=== PATIENT | female | born 1990 | race Caucasian/White ===

== ENCOUNTER 2016-12-18 10:59 | Emergency (ER) | payer OTHER ==
[2016-12-18 11:09] VITALS: BP 118/84; PULSE 87; TEMP 98.4; BMI 26.6
--- NOTE | 2016-12-18 11:45 | PDOC ---
History of Present Illness - General Chief Complaint: Urinary Problem Stated Complaint: UTI X 1 WEEK Time Seen by Provider: 12/18/16 11:34 - History of Present Illness Initial Comments: 12/18/16 11:41 26-year-old female with a negative past medical history She is on no medications, NKDA LMP 11/26/16, normal and on time Patient is complaining of 5 days of dysuria urgency and frequency She's been using the otca-die-lcioubm Uristat for the past 3-4 days, which helps temporarily, but then the symptoms return She states the symptoms became worse this morning, prompting her to come to the emergency department She denies any fevers or chills She denies any flank pain She denies any pelvic pain She denies any abnormal vaginal discharge spotting or bleeding She denies a history of frequent urinary tract infections, and states that this is her first one She denies any other complaints at this time, and the remainder of the review of systems is negative Past History - Past Medical History Allergies/Adverse Reactions: Allergies Allergy/AdvReac Type Severity Reaction Status Date / Time No Known Allergies Allergy Verified 12/18/16 11:01 Home Medications: Ambulatory Orders Cephalexin Monohydrate [Keflex -] 500 mg PO Q8H #21 capsule 12/18/16 - Immunization History Immunization Up to Date: Yes - Psycho/Social/Smoking Cessation Hx Anxiety: No Suicidal Ideation: No Smoking Status: No Smoking History: Never smoked Have you smoked in the past 12 months: No Number of Cigarettes Smoked Daily: 0 Hx Alcohol Use: No Drug/Substance Use Hx: No Substance Use Type: None *Physical Exam - Vital Signs Last Vital Signs Temp Pulse Resp BP Pulse Ox 98.4 F 87 15 118/84 97 12/18/16 11:01 12/18/16 11:01 12/18/16 11:01 12/18/16 11:01 12/18/16 11:01 - Physical Exam Comments: 12/18/16 11:43 Physical exam Last Vital Signs Temp Pulse Resp BP Pulse Ox 98.4 F 87 15 118/84 97 12/18/16 11:01 12/18/16 11:01 12/18/16 11:01 12/18/16 11:01 12/18/16 11:01 GENERAL: The patient is awake, alert, and fully oriented, and in no apparent distress. HEAD: Normal with no signs of trauma. EYES: sclera anicteric, conjunctiva are normal. ENT: Moist mucous membranes. NECK: Normal range of motion, supple LUNGS: Breath sounds equal, clear to auscultation bilaterally. No wheezes, and no crackles. HEART: Regular rate and rhythm, normal S1 and S2 without murmur, rub or gallop. ABDOMEN: Soft, nontender, normoactive bowel sounds. No guarding, no rebound. No masses appreciated. There is no CVA tenderness There is minimal suprapubic tenderness to palpation, otherwise the abdomen is completely soft and nontender EXTREMITIES: Normal range of motion, no edema. No clubbing or cyanosis. No cords, erythema, or tenderness. NEUROLOGICAL: Cranial nerves II through XII grossly intact. Normal speech, normal gait. PSYCH: Normal mood, normal affect. SKIN: Warm, Dry, normal turgor, no rashes or lesions noted. Medical Decision Making - Medical Decision Making 12/18/16 11:44 Most likely simple cystitis, and the patient does not have a history of recurrent UTIs, and no clinical evidence of pyelonephritis 12/18/16 12:35 UA with positive leukocyte esterase and positive nitrate, micro-pending Consistent with UTI Laboratory Results - last 24 hr 12/18/16 11:05 Urine Color Yellow Urine Appearance Cloudy Urine pH 7.0 Ur Specific [place] 1.015 Urine Protein 1+ H Urine Glucose (UA) Trace Urine Ketones Negative Urine Blood 1+ H Urine Nitrite Positive Urine Bilirubin Negative Urine Urobilinogen 1.0 e.u/dl Ur Leukocyte Esterase Trace Impression-UTI *DC/Admit/Observation/Transfer Diagnosis at time of Disposition: Urinary tract infection - Discharge Dispostion Disposition: HOME Condition at time of disposition: Good - Referrals Referrals: Aurelio Carter MD [Primary Care Provider] - Call tomorrow - Patient Instructions Printed Discharge Instructions: Urinary Tract Infection, DI for Urinary Tract Infection (UTI) Additional Instructions: Drink plenty of fluids Take your medications as prescribed Take the antibiotic as prescribed until it is finished Return immediately if you develop fever, chills, vomiting, severe pain, or flank pain You cannot take any more [id number] Urostat as you have already taken it for 3-4 days Followup with your primary care physician in 24-48 hours Return immediately if you worsen in any way Take your medications as directed
[2016-12-18 12:33] LABS: URINE APPEARANCE Cloudy; URINE BILIRUBIN Negative (NEGATIVE); URINE BLOOD 1+ (NEGATIVE); URINE GLUCOSE (UA) Trace (NEGATIVE); URINE KETONE Negative (NEGATIVE); URINE LEUK ESTERASE Trace (NEGATIVE); URINE NITRITE Positive (NEGATIVE); URINE PROTEIN 1+ (NEGATIVE); URINE UROBILINOGEN 1.0 E.U/dl (0.2-1.0)
[2016-12-18 12:34] LABS: URINE BACTERIA MANY /hpf (NEGATIVE); URINE COLOR YELLOW; URINE WBC 0-3 (3-5)
[2016-12-18 12:35] LABS: URINE MUCUS FEW
== END 2016-12-18 12:48 | disposition home or self-care (01) ==
LOC: FER 10:59
DX: N39.0 Urinary tract infection, site not specified (principal)
CPT/HCPCS: 81003; 81015; 87086; 99282-25

== ENCOUNTER 2017-03-17 19:10 | Emergency (ER) | payer OTHER ==
[2017-03-17 19:19] VITALS: BP 129/78; PULSE 115; TEMP 99; BMI 28.1
--- NOTE | 2017-03-17 19:32 | PDOC ---
History of Present Illness - General History Source: Patient Exam Limitations: No Limitations - History of Present Illness Initial Comments: 03/17/17 19:55 The patient is a 26 year old female, with no significant past medical history, who presents to the emergency department complaining of a sore throat for approximately 4 days. The patient reports associated fever, chills, nasal congestion, shortness of breath, and chest discomfort. Patient reports taking advil and robitussin for the fever with no relief. Patient reports a cough productive with green sputum. She denies any headache or dizziness. She denies any diaphoresis, palpitations, or lower extremity edema. Patient reports she has not been able to tolerate solids or fluids p.o. due to throat pain. She denies any abdominal pain, nausea, or vomiting. She denies any recent travel or sick contacts. PAST MEDICAL HISTORY: no significant history PAST SURGICAL HISTORY: no significant history FAMILY HISTORY: no pertinent history SOCIAL HISTORY: Pt lives with family and is employed. MEDICATIONS: reviewed ALLERGIES: As per nursing notes General: Yes: +fever, +chills, +body aches. No weakness, no weight loss HEENT: Yes: +sore throat. No change in vision. No ear pain CardioVascular: Yes: +shortness of breath, +chest discomfort. Respiratory: Yes: +cough. No or wheezing. Gastrointestinal: no nausea, vomiting, diarrhea or constipation, No rectal bleeding Genitourinary: No dysuria, hematuria, or frequency Musculoskeletal: No joint or muscle pain or swelling Neurologic: No headache, vertigo, dizziness or loss of consciousness Psychiatric: No depression Skin: No rashes or easy bruising Endocrine: no increased thirst or abnormal weight change Allergic: no skin or latex allergy All other systems reviewed and normal General: Mild distress. Well-nourished well-developed individual. HEENT: Throat: Posterior oropharynx is enlarged with erythema and exudate Neck: Bilateral submandibular lymphadenopathy. Supple, no meningeal signs. Eyes: Pupils equal reactive and round, extraocular motion intact Chest: Nontender to palpation Cardiac: S1-S2 normal, regular rate and rhythm, no murmurs rubs or gallops Respiratory: Lungs clear to auscultation bilateral Extremities: Warm, dry, no cyanosis, clubbing, or edema Skin: No rashes Neuro: Alert and oriented x3, nonfocal exam, grossly intact, normal gait Psych: Normal mood and affect <Martinez,Giomilsy - Last Filed: 03/17/17 19:54> - General History Source: Patient Exam Limitations: No Limitations - History of Present Illness Initial Comments: 03/17/17 20:01 A portion of this note was documented by scribe services under my direction. I have reviewed the details of the note, within reason, and agree with the documentation. The case summary and management plan written by me. Assessment and plan: This is a 26-year-old female who comes in complaining of cough congestion and upper respiratory tract symptoms in addition to sore throat fever and swollen lymph glands. Patient on exam has an exudative pharyngitis with lymphadenopathy and fever. Patient meets criteria for strep pharyngitis and will be started on azithromycin which will also cover her for any respiratory infection as well since she's is complaining of some pleuritic type chest pain and coughing up green phlegm. Patient given first dose in the emergency room and discharged home with a prescription for the rest of the course of azithromycin. Patient told to get a thermometer so she could monitor her temperature and follow up with her primary care doctor. <Danielle Can I - Last Filed: 03/17/17 20:02> - General Chief Complaint: Respiratory Stated Complaint: SORE THROAT, COUGH Time Seen by Provider: 03/17/17 19:30 Past History <Manpreet Martinez - Last Filed: 03/17/17 19:54> - Past Medical History Other medical history: DENIES - Immunization History Immunization Up to Date: Yes - Psycho/Social/Smoking Cessation Hx Anxiety: No Suicidal Ideation: No Smoking Status: No Smoking History: Never smoked Have you smoked in the past 12 months: No Number of Cigarettes Smoked Daily: 0 Information on smoking cessation initiated: No Hx Alcohol Use: No Drug/Substance Use Hx: No Substance Use Type: None <Danielle Can I - Last Filed: 03/17/17 20:02> - Past Medical History Allergies/Adverse Reactions: Allergies Allergy/AdvReac Type Severity Reaction Status Date / Time No Known Allergies Allergy Verified 03/17/17 19:14 Home Medications: Ambulatory Orders Azithromycin 250 mg PO DAILY #4 tablet 03/17/17 Guaifenesin [Robitussin -] 100 mg PO ASDIR PRN 03/17/17 Ibuprofen [Advil -] 400 mg PO ASDIR PRN 03/17/17 *Physical Exam - Vital Signs Last Vital Signs Temp Pulse Resp BP Pulse Ox 99 F 115 H 20 129/78 99 03/17/17 19:10 03/17/17 19:10 03/17/17 19:10 03/17/17 19:10 03/17/17 19:10 <Manpreet Martinez - Last Filed: 03/17/17 19:54> - Vital Signs Last Vital Signs Temp Pulse Resp BP Pulse Ox 99 F 115 H 20 129/78 99 03/17/17 19:10 03/17/17 19:10 03/17/17 19:10 03/17/17 19:10 03/17/17 19:10 <Danielle Can I - Last Filed: 03/17/17 20:02> *DC/Admit/Observation/Transfer - Attestations Scribe Attestion: 03/17/17 19:55 Documentation prepared by Manpreet Martinez, acting as medical records auditor for Danielle Can MD. <Manpreet Martinez - Last Filed: 03/17/17 19:54> - Discharge Dispostion Admit: No <Danielle Can I - Last Filed: 03/17/17 20:02> Diagnosis at time of Disposition: Pharyngitis Qualifiers: Pharyngitis/tonsillitis etiology: unspecified etiology Qualified Code(s): J02.9 - Acute pharyngitis, unspecified - Discharge Dispostion Disposition: HOME Condition at time of disposition: Stable - Prescriptions Prescriptions: Azithromycin 250 mg PO DAILY #4 tablet - Patient Instructions Printed Discharge Instructions: How to Take an Oral Temperature, DI for Strep Throat Additional Instructions: Take azithromycin 1 tablet in the evening before bed once a day for the next 4 days. You were given the first dose this evening so you need to take the next dose tomorrow evening. Alternate Tylenol with ibuprofen as often as every 3 hours if needed as discussed by the physician. Purchase a thermometer so you can monitor your temperature. Make sure you stay well hydrated. Return to the emergency department immediately with ANY new, persistent or worsening symptoms. Continue any medications as previously prescribed by your physician. You should follow up with your primary doctor as soon as possible regarding today's emergency department visit. . Please make sure your doctor reviews the results of your emergency evaluation. Thank you for coming to the Emergency Department today for your care. It was a pleasure to see you today. Please note that your evaluation is INCOMPLETE until you follow-up with your doctor.
[2017-03-17] MEDS ORDERED: DEXAMETHASONE SOD PHOSPHATE 10 MG/1 ML VIAL IVPUSH ONE (19:50)
[2017-03-17] MEDS ORDERED: AZITHROMYCIN 250 MG TABLET (FP) PO ONE (19:50)
[2017-03-17] MEDS ORDERED: DEXAMETHASONE SOD PHOSPHATE 10 MG/1 ML VIAL ONE (19:52)
[2017-03-17] MEDS ORDERED: AZITHROMYCIN 250 MG TABLET (FP) ONE (19:52)
== END 2017-03-17 20:00 | disposition home or self-care (01) ==
LOC: FER 19:10
PROC: 3E033GC Introduction of Other Therapeutic Substance into Peripheral Vein, Percutaneous Approach (ICD-10-PCS; principal; 2017-03-17)
DX: J02.9 Acute pharyngitis, unspecified (principal)
CPT/HCPCS: 96374; 99283-25

== ENCOUNTER 2017-11-28 12:54 | Emergency (ER) | payer OTHER ==
[2017-11-28 13:01] VITALS: BP 126/76; PULSE 89; TEMP 98.4; BMI 28.3
--- NOTE | 2017-11-28 13:22 | PDOC ---
History of Present Illness - General Chief Complaint: Respiratory Stated Complaint: COUGH & COLD SX, DIARRHEA Time Seen by Provider: 11/28/17 13:22 - History of Present Illness Initial Comments: 11/28/17 14:52 Chief complaint: URI symptoms and diarrhea History of present illness: Mild respiratory illness for about 1 week, nausea and diarrhea today, watery stool without blood, at least 10 episodes. Review of systems: Admits to myalgias, body aches, fever/chills, intermittent mild crampy abdominal pain associated with the diarrhea. No vomiting. No chest pain, shortness of breath, urinary tract symptoms, vaginal bleeding or discharge , and she states there is no possibility that she is . 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 Soft without masses tenderness organomegaly. No CVAT. Extremities no CCE Skin clear, no rashes, adequate turgor, but mucous membranes slightly dry Neurological intact One episode of diarrhea upon arrival, none since. Impression: Viral syndrome, URI and gastroenteritis, mild dehydration Plan: Intravenous fluids and symptomatic treatment. Observation. Labs to evaluate electrolyte status. Past History - Past Medical History Allergies/Adverse Reactions: Allergies Allergy/AdvReac Type Severity Reaction Status Date / Time No Known Allergies Allergy Verified 11/28/17 12:54 Home Medications: Ambulatory Orders Ondansetron [Zofran Odt -] 4 mg SL TID PRN #10 od.tablet 11/28/17 COPD: No Other medical history: PT DENIES - Immunization History Immunization Up to Date: Yes - Suicide/Smoking/Psychosocial Hx Smoking Status: No Smoking History: Never smoked Have you smoked in the past 12 months: No Number of Cigarettes Smoked Daily: 0 Hx Alcohol Use: (occasional) Drug/Substance Use Hx: No Substance Use Type: None *Physical Exam - Vital Signs Last Vital Signs Temp Pulse Resp BP Pulse Ox 98.4 F 89 18 126/76 100 11/28/17 12:54 11/28/17 12:54 11/28/17 12:54 11/28/17 12:54 11/28/17 12:54 ED Treatment Course - LABORATORY CBC & Chemistry Diagram: 11/28/17 13:50 11/28/17 13:50 Medical Decision Making - Medical Decision Making 11/28/17 14:56 Laboratory evaluation was reviewed. CBC chemistries urinalysis and test show no significant abnormalities. Specifically, BUNs/creatinine, electrolytes are normal. Urine negative. Urinalysis clear Patient feels somewhat better after intravenous fluid administration, Toradol, and Zofran 11/28/17 14:58 No further nausea, diarrhea. 11/28/17 16:09 *DC/Admit/Observation/Transfer Diagnosis at time of Disposition: Viral syndrome - Discharge Dispostion Disposition: HOME Condition at time of disposition: Improved Admit: No - Prescriptions Prescriptions: Ondansetron [Zofran Odt -] 4 mg SL TID PRN #10 od.tablet PRN Reason: Nausea And/Or Vomiting - Referrals Referrals: Aurelio Carter MD [Primary Care Provider] - 2 Days - Patient Instructions Printed Discharge Instructions: DI for Viral Gastroenteritis -- Adult, DI for Viral Upper Respiratory Infection -- Adult - Post Discharge Activity Forms/Work/School Notes: Back to Work Activity Comments: 11/28/17 15:06 Rest, drink lots of fluids, take Tylenol or Advil for headache, body aches, or fever Prescription medication as directed for nausea or vomiting if these are preventing you from drinking enough liquids Continue Imodium if diarrhea persists and is severe Return to ER if symptoms worsen, otherwise follow-up with primary physician.
[2017-11-28] MEDS ORDERED: KETOROLAC TROMETHAMINE 30 MG/1 ML VIAL IVPUSH ONE (13:43)
[2017-11-28] MEDS ORDERED: ONDANSETRON 4 MG/2 ML VIAL IVPB ONE (13:43)
[2017-11-28] MEDS ORDERED: LOPERAMIDE HCL 2 MG CAPSULE PO ONE (13:43)
[2017-11-28] MEDS ORDERED: SODIUM CHLORIDE 1,000 ML IV STA ×2 (13:43→14:58)
[2017-11-28] MEDS ORDERED: ONDANSETRON 4 MG/2 ML VIAL ONE (13:54)
[2017-11-28] MEDS ORDERED: LOPERAMIDE HCL 2 MG CAPSULE ONE (13:55)
[2017-11-28 14:15] LABS: URINE APPEARANCE Clear; URINE BILIRUBIN Negative (NEGATIVE); URINE BLOOD 1+ (NEGATIVE); URINE COLOR YELLOW; URINE GLUCOSE (UA) Negative (NEGATIVE); URINE KETONE Negative (NEGATIVE); URINE LEUK ESTERASE Negative (NEGATIVE); URINE NITRITE Negative (NEGATIVE); URINE PROTEIN Negative (NEGATIVE); URINE UROBILINOGEN 0.2 (0.2-1.0)
[2017-11-28 14:19] LABS: ALBUMIN 3.9 g/dl (3.5-5.0); ALK PHOS 74 U/L (32-92); ANION GAP 1 (8-16); BLOOD UREA NITROGEN 8 mg/dl (7-18); CALCIUM 8.9 mg/dl (8.4-10.2); CHLORIDE 105 mmol/L (98-107); CO2 25 mmol/L (22-28); GLUCOSE,RANDOM 96 mg/dl (74-106); POTASSIUM 4.2 mmol/L (3.5-5.1); SGOT/AST 21 U/L (10-42); SGPT/ALT 20 U/L (10-40); SODIUM 131 mmol/L (136-145); TOT PROT 7.2 g/dl (6.4-8.3)
[2017-11-28 14:29] LABS: BILIRUBIN,TOTAL < 0.5 mg/dl (0.2-1.0); CREATININE < 0.8 mg/dl (0.6-1.3)
[2017-11-28 14:31] LABS: HCG,QUALITATIVE URINE NEGATIVE
[2017-11-28 14:36] LABS: BASO % 0.5 % (0-2.0); EOS % 3.3 % (0-4.5); HEMATOCRIT 39.1 % (32.4-45.2); HEMOGLOBIN 13.2 GM/dl (10.7-15.3); LYMPH % 13.1 % (8-40); MCH 29.7 pg (25.7-33.7); MCHC 33.9 g/dl (32.0-36.0); MEAN CELL VOLUME 87.6 fl (80-96); MEAN PLT VOLUME 8.1 fl (7.5-11.1); MONO % 6.5 % (3.8-10.2); NEUT % 76.6 % (42.8-82.8); PLATELET COUNT 252 K/MM3 (134-434); RBC 4.46 M/mm3 (3.60-5.2); WHITE BLOOD COUNT 9.4 K/mm3 (4.0-10.8)
[2017-11-28] MEDS ORDERED: KETOROLAC TROMETHAMINE 30 MG/1 ML VIAL ONE (14:37)
[2017-11-28 21:34] LABS: URINE BACTERIA FEW /hpf (NEGATIVE); URINE WBC 0-2 (0-5)
== END 2017-11-28 16:15 | disposition home or self-care (01) ==
LOC: FER 12:54
PROC: 3E0333Z Introduction of Anti-inflammatory into Peripheral Vein, Percutaneous Approach (ICD-10-PCS; principal; 2017-11-28)
PROC: 3E033GC Introduction of Other Therapeutic Substance into Peripheral Vein, Percutaneous Approach (ICD-10-PCS; 2017-11-28)
PROC: 3E0337Z Introduction of Electrolytic and Water Balance Substance into Peripheral Vein, Percutaneous Approach (ICD-10-PCS; 2017-11-28)
DX: B34.9 Viral infection, unspecified (principal)
CPT/HCPCS: 36415; 80053; 81003; 81015; 84703; 85025; 96361; 96374; 96375; 99284-25; J7030

== ENCOUNTER 2020-11-23 02:18 | Emergency (ER) | payer OTHER ==
[2020-11-23 03:15] VITALS: BP 125/83; PULSE 73; TEMP 97.8; BMI 28.3
[2020-11-23] MEDS ORDERED: DIPHTH,PERTUSS(ACELL),TET 0.5 ML DISP.SYRIN IM ONE ×2 (03:40→03:43)
== END 2020-11-23 05:20 | disposition home or self-care (01) ==
LOC: JER 02:18
PROC: 3E0234Z Introduction of Serum, Toxoid and Vaccine into Muscle, Percutaneous Approach (ICD-10-PCS; principal; 2020-11-23)
DX: S61.412A Laceration without foreign body of left hand, initial encounter (principal)
CPT/HCPCS: 73130-TC-LT-FY; 90715; 99284-25